=== PATIENT | female | born 1985 | race Caucasian/White ===

== ENCOUNTER 2023-01-08 08:50 | Outpatient (CLI) | payer OTHER ==
[2023-01-08 11:54] LABS: BASOPHILS # (AUTO) 0.1 10^3/uL (0.0-0.1); EOSINOPHILS # (AUTO) 0.2 10^3/uL (0.0-0.7); EOSINOPHILS % (AUTO) 3.7 %; HCT - HEMATOCRIT 41.6 % (37.0-47.0); HGB - HEMOGLOBIN 13.5 g/dL (12.0-16.0); LYMPHOCYTES # (AUTO) 2.2 10^3/uL (1.5-3.5); LYMPHOCYTES % (AUTO) 44.3 %; MEAN CORPUSCULAR HEMOGLOBIN 31.3 pg (27.0-31.0); MEAN CORPUSCULAR HGB CONC 32.5 g/dL (32.0-36.0); MEAN CORPUSCULAR VOLUME 96.5 fL (81.0-99.0); MONOCYTES # (AUTO) 0.4 10^3/uL (0.0-1.0); NEUTROPHILS # (AUTO) 2.1 10^3/uL (1.5-6.6); NEUTROPHILS % (AUTO) 41.8 %; PLT - PLATELET COUNT 237 10^3/uL (130-450); RED BLOOD COUNT 4.31 10^6/uL (4.20-5.40); RED CELL DISTRIBUTION WIDTH 12.9 % (12.0-15.0); WHITE BLOOD COUNT 4.9 x10^3/uL (4.8-10.8)
[2023-01-08 12:27] LABS: THYROID STIMULATING HORMONE 2.22 uIU/mL (0.34-5.60)
[2023-01-08 12:28] LABS: FREE T4 (FREE THYROXINE) 0.81 ng/dL (0.58-1.64)
[2023-01-08 12:33] LABS: ALBUMIN 4.4 g/dL (3.2-5.5); ALBUMIN/GLOBULIN RATIO 1.4 (1.0-2.2); ALKALINE PHOSPHATASE 58 IU/L (42-121); ALT ALANINE AMINOTRANSFERASE 21 IU/L (10-60); AST ASPARTATE AMINOTRANSFERASE 22 IU/L (10-42); BILIRUBIN,TOTAL 0.6 mg/dL (0.2-1.0); BUN - BLOOD UREA NITROGEN 18 mg/dL (6-20); CALCIUM 9.7 mg/dL (8.5-10.3); CARBON DIOXIDE - CO2 29 mmol/L (21-32); CHLORIDE 107 mmol/L (101-111); CHOLESTEROL 217 mg/dL; CREATININE 0.8 mg/dL (0.4-1.0); GFR - MDRD 80 (>89); GLUCOSE 99 mg/dL (70-100); HDL CHOLESTEROL 73 mg/dL; LDL CHOLESTEROL,CALCULATED 132 mg/dL; LDL/HDL RATIO 1.8 (<4.4); POTASSIUM 4.4 mmol/L (3.5-5.0); SODIUM 140 mmol/L (135-145); TOTAL PROTEIN 7.6 g/dL (6.7-8.2); TRIGLYCERIDES 59 mg/dL; VLDL CHOLESTEROL 12 mg/dL
[2023-01-11 18:07] LABS: ANTINUCLEAR ANTIBODIES IFA Negative (.)
== END 2023-01-08 08:51 | disposition home or self-care (01) ==
LOC: LAB.N 08:50
PROVIDERS: ATTEND Internal Medicine
DX: Z00.00 Encounter for general adult medical examination without abnormal findings (principal); L50.1 Idiopathic urticaria
CPT/HCPCS: 36415; 80053; 80061; 83721; 84439; 84443; 85025; 86038

== ENCOUNTER 2023-01-31 10:20 | Outpatient (CLI) | payer OTHER ==
--- NOTE | 2023-02-03 12:52 | Ultrasound Report ---
LIMITED ULTRASOUND OF RIGHT BREAST AND AXILLA: 01/31/2023 CLINICAL: Palpable right breast lump. Comparison is made to exam dated: 01/31/2023 mammogram - [facility]. Color flow and real-time ultrasound of the right breast 4 o'clock, 10 o'clock, and axilla regions wer e performed on the areas of interest. Dia scale images of the real-time examination were reviewed. IMPRESSION: NEGATIVE There is no sonographic evidence of malignancy. There is no mammographic or sonographic abnormality seen in the right breast to correspond with the p alpable abnormalities, however, clinical followup is recommended. A 1 year screening mammogram is recommended. This exam was interpreted at Station ID: [id number]. Electronically Signed By: Ritu Goldsmith M.D. lk/:01/31/2023 11:53:39 Ultrasound BI-RADS: 1 Negative BI-RADS CATEGORY: (1) - 1 Mammogram [id number] 1 year screening LATERALITY: (B)
--- NOTE | 2023-02-03 12:52 | Mammography Report ---
BILATERAL DIGITAL DIAGNOSTIC MAMMOGRAM 3D/2D WITH SPOT COMPRESSION: 01/31/2023 CLINICAL: Baseline exam. Palpable right breast lumps. No prior exams were available for comparison. Both breasts are extremely dense, which lowers the sensitivity of mammography (category d />75% gland ular tissue). No significant masses, calcifications, or other findings are seen in either breast. IMPRESSION: INCOMPLETE: NEEDS ADDITIONAL IMAGING EVALUATION There is no mammographic abnormality seen in the right breast to correspond with the palpable abnorma lities, however, targeted ultrasound of the right breast is recommended and will be performed immedi ately following this exam. Based on Tyrer-Cuzick model (a risk assessment model), the patient's lifetime risk is 25.9% and her 1 0 year risk is 3.2%. If a patient has an elevated risk, a more comprehensive evaluation should be con sidered and/or a referral to a genetic counselor. The [employer], [employer], and NCCN Guidelines advise the consideration of Breast MRI as an adjunct to screening mammog [place] in patients whose "Lifetime risk to develop breast cancer" is 20% or higher. This exam was interpreted at Station ID: [id number]. NOTE: For mammograms, a report in lay terms will be sent to the patient. Approximately 15% of breast malignancies will not be visualized mammographically. In the management of a palpable breast mass, a negative mammogram must not discourage biopsy of a clinically suspicious lesion. Electronically Signed By: Ritu Goldsmith M.D. lk/:01/31/2023 11:41:01 ACR BI-RADS Category 0: Incomplete 3340F PARENCHYMAL PATTERN: (VD) - The breast(s) demonstrate(s) extremely dense parenchyma, limiting the sen sitivity of mammography. BI-RADS CATEGORY: (0) - 0 Ultrasound [id number] Immediate follow-up LATERALITY: (B)
== END 2023-01-31 10:21 | disposition home or self-care (01) ==
LOC: DI 10:20
PROVIDERS: ATTEND Physician Assistant
DX: N63.11 Unspecified lump in the right breast, upper outer quadrant (principal)

== ENCOUNTER 2023-10-27 07:30 | Outpatient (CLI) | payer OTHER ==
[2023-10-27] MEDS ORDERED: iohexoL-300 100 ML VIAL ONE (07:33)
[2023-10-27] MEDS ORDERED: DIATRIZOATE MEGLU/DIATRIZO SOD 30 ML BOTTLE PO ONE ×2 (07:33→08:58)
[2023-10-27 08:01] LABS: BASOPHILS % (AUTO) 0.6 %; EOSINOPHILS # (AUTO) 0.1 10^3/uL (0.0-0.7); EOSINOPHILS % (AUTO) 2.4 %; HCT - HEMATOCRIT 41.3 % (37.0-47.0); HGB - HEMOGLOBIN 13.3 g/dL (12.0-16.0); LYMPHOCYTES # (AUTO) 1.8 10^3/uL (1.5-3.5); MEAN CORPUSCULAR HEMOGLOBIN 30.9 pg (27.0-31.0); MEAN CORPUSCULAR HGB CONC 32.2 g/dL (32.0-36.0); MEAN CORPUSCULAR VOLUME 95.8 fL (81.0-99.0); MEAN PLATELET VOLUME 9.8 fL (7.9-10.8); MONOCYTES # (AUTO) 0.4 10^3/uL (0.0-1.0); NEUTROPHILS # (AUTO) 2.7 10^3/uL (1.5-6.6); NEUTROPHILS % (AUTO) 53.8 %; PLT - PLATELET COUNT 226 10^3/uL (130-450); RED BLOOD COUNT 4.31 10^6/uL (4.20-5.40); RED CELL DISTRIBUTION WIDTH 12.1 % (12.0-15.0)
[2023-10-27 08:19] LABS: ALBUMIN 4.4 g/dL (3.2-5.5); ALBUMIN/GLOBULIN RATIO 1.7 (1.0-2.2); BILIRUBIN,TOTAL 0.7 mg/dL (0.2-1.0); CALCIUM 9.5 mg/dL (8.5-10.3); CREATININE 0.9 mg/dL (0.6-1.3); POTASSIUM 3.6 mmol/L (3.5-4.5)
[2023-10-27 08:33] LABS: FERRITIN 53.7 ng/mL (11.0-306.8)
[2023-10-27] MEDS ORDERED: iohexoL-300 100 ML VIAL IVP ONE (08:59)
--- NOTE | 2023-10-27 09:20 | CT Report ---
PROCEDURE: Abdomen/Pelvis W INDICATIONS: ABD PAIN CONTRAST: 100ml omni 300 TECHNIQUE: After the administration of intravenous contrast, a CT scan of the abdomen and pelvis was performed. Images were recorded and evaluated at appropriate window settings. Reformats: coronal and sagittal. F or radiation dose reduction, the following was used: automated exposure control, adjustment of mA and /or kV according to patient size. COMPARISON: None. FINDINGS: Image quality: Excellent. Lung bases and heart: Unremarkable. Liver: There are 2 adjacent hepatic hypodense lesions noted near the hepatic dome the the right hepat ic lobe measuring approximately 3.0 x 3.0 cm and 5.2 x 4.8 cm respectively. These demonstrate nodular peripheral enhancement. Gallbladder and biliary tree: No radiopaque stones or wall thickening. No biliary dilation. Spleen: No splenomegaly. Pancreas: No pancreatic ductal dilation. Adrenals: No adrenal nodule. Kidneys and ureters: No hydronephrosis. No renal cystic lesion which requires follow up. No solid mas s. Bowel and peritoneum: No bowel distension. No pathologic free fluid. Normal appendix. Lymph nodes: No central or retroperitoneal adenopathy. Vessels: No infrarenal aortic aneurysm. PELVIS Reproductive organs: Unremarkable. Bladder: No abnormal wall thickening, accounting for underdistention. Pelvic lymph nodes: No pelvic adenopathy by size criteria. Bones: No aggressive osseous abnormality. Mild lower lumbar spondylosis. Other: No significant ventral or inguinal hernia. IMPRESSION: Right hepatic lobe hypodense lesions measuring 3.0 cm and 5.2 cm respectively. Imaging findings sugge stive of hemangiomas. Recommend further evaluation with multi phase CT or MRI of the abdomen using [facility] protocol. Otherwise, no acute abnormalities identified in the abdomen or pelvis to explain patient's symptoms. Reviewed by: Julio Andujar MD on 10/27/2023 9:18 AM PST Approved by: Julio Andujar MD on 10/27/2023 9:18 AM PST Station ID: [id number]
== END 2023-10-27 07:31 | disposition home or self-care (01) ==
LOC: DI 07:30
PROVIDERS: ATTEND Physician Assistant
DX: K76.9 Liver disease, unspecified (principal); R10.84 Generalized abdominal pain
CPT/HCPCS: 36415; 74177; 80053; 82728; 83540; 83690; 84466; 85025; 86364; Q9963; Q9967

== ENCOUNTER 2023-11-07 07:06 | Outpatient (CLI) | payer OTHER ==
[2023-11-07] MEDS ORDERED: GADOTERATE MEGLUMINE 2.5 MMOL/5 ML VIAL ONE (07:07)
[2023-11-07] MEDS ORDERED: GADOTERATE MEGLUMINE 5 MMOL/10 ML VIAL ONE (07:07)
[2023-11-07] MEDS ORDERED: GADOTERATE MEGLUMINE 5 MMOL/10 ML VIAL IVP ONE (08:38)
--- NOTE | 2023-11-07 10:44 | MRI Report ---
PROCEDURE: Abdomen W/WO INDICATIONS: ABD PAIN CONTRAST: CLARISCAN 14.0 ML TECHNIQUE: Coronal ultra fast SE, axial 2D spoiled GE in- and [id number]; axial breath-hold T2 fast SE. Dynam ic axial ultra fast GE during the administration of contrast; post-contrast coronal ultra fast GE or 2D spoiled GE with fat saturation from the hepatic dome to the iliac crests. Optional diffusion weig hted imaging and ADC may be performed. COMPARISON: CT 10/27/2023 FINDINGS: Image quality: Excellent. Lung bases and heart: Unremarkable. Liver: There is a mildly T2 hyperintense mass with irregular areas of high T2 signal in segment 7/8 l aterally measuring 6.1 x 5.5 x 4.6 cm. Postcontrast it demonstrates characteristic discontinuous yves pheral nodular enhancement which slightly increases on delayed phases. In segment 8 of the liver clos e to the liver dome, a 3.5 x 2.7 cm mass is present with identical characteristics. A third similar m ass measuring 1.6 cm is present in the lateral aspect of segment 3. No suspicious arterial enhancemen t in the liver. Gallbladder and biliary tree: Normal gallbladder without wall thickening or stones. No intra or extra hepatic biliary dilatation. Spleen: No splenomegaly. Pancreas: Normal pancreatic signal. No ductal dilatation. No suspicious enhancement. Adrenals: No adrenal nodule. Kidneys and ureters: Symmetric enhancement. No hydronephrosis or nephrolithiasis. No solid mass or cy st requiring follow-up. No ureteral dilatation. Bowel and peritoneum: The stomach and visible portions of bowel loops are normal. Lymph nodes: No central or retroperitoneal adenopathy. Vessels: No infrarenal aortic aneurysm. Bones: No aggressive osseous abnormality. Other: No significant ventral hernia. IMPRESSION: 3 hepatic lesions, the largest measuring 6.1 cm, all with characteristics of benign cavernous hepatic hemangiomas. Reviewed by: Lauren Sanchez MD on 11/07/2023 10:43 AM PST Approved by: Lauren Sanchez MD on 11/07/2023 10:43 AM PST Station ID: [id number]
== END 2023-11-07 07:07 | disposition home or self-care (01) ==
LOC: DI 07:06
PROVIDERS: ATTEND Physician Assistant
DX: K76.89 Other specified diseases of liver (principal)
CPT/HCPCS: 74183; A9575